=== PATIENT | male | born 1965 | race Caucasian/White ===

== ENCOUNTER 2020-01-07 17:18 | Emergency (ER) | payer OTHER, SELFPAY ==
[2020-01-07 17:27] VITALS: BP 182/103; PULSE 79; RESP 16; TEMP 36.8; O2SAT 97; BMI 43.0
--- NOTE | 2020-01-07 17:36 | DI.RAD.S_ITS ---
PROCEDURE: XR HUMERUS LT 2V INDICATIONS: possible torn bicep TECHNIQUE: 2 views of the humerus were acquired. COMPARISON: None. FINDINGS: Bones: No fractures or dislocations. No suspicious bony lesions. Soft tissues: No suspicious soft tissue calcifications. IMPRESSION: No fracture. No osseous lesion. If symptoms and/or clinical suspicion for pathology persists, further assessment with repeat radiographs (7-10 days) or advanced imaging (e.g. CT, MRI or bone scan) may be helpful. Dictated by: Fadumo Schaefer MD, PhD on 01/07/2020 at 17:57 Approved by: Fadumo Schaefer MD, PhD on 01/07/2020 at 17:57
--- NOTE | 2020-01-07 18:07 | ED.UPPEXIN ---
HPI - Extremity Injury (Upper) General Chief Complaint: Extremity Injury, Upper Stated Complaint: torn something in left bicep Time Seen by Provider: 01/07/20 17:52 Source: patient Mode of arrival: Ambulatory Limitations: no limitations History of Present Illness HPI narrative: 55M non smoker without significant medical history presents with severe left elbow / biceps pain with swelling after a work related injury earlier today. Patient was moving a heavy desk at work and it slipped and he reached out to grab it he felt pain, swelling and a pop on the flexor side of his left elbow in region of biceps insertion. He still has full strength and ROM, but has pain. He denies numbness, tingling or weakness. He denies prior injury. He denies shoulder pain. He is otherwise fine and well and free of complaint. He finds comfort self splinting his left arm flexed at 90 degrees at the elbow and laying acrossed his belly. complaint: injury to: left Onset (ago): hour(s) Other injuries: none Handedness: right Place: work Severity: moderate Relieving factors: rest Exacerbating factors: movement of extremity Context: other Associated symptoms: denies other symptoms Review of Systems Constitutional Constitutional: Denies chills, Denies fatigue, Denies fever(s), Denies frequent falls, Denies lethargy and Denies weakness Eyes Eyes: Denies change in vision, Denies eye discharge, Denies irritation and Denies loss of vision ENT Ears, Nose, Mouth, and Throat: Denies change in voice, Denies dizziness, Denies neck pain, Denies sore throat and Denies throat swelling Cardiovascular Cardiovascular: Denies chest pain, Denies irregular heart rhythm, Denies lightheadedness, Denies palpitations, Denies dyspnea, Denies dyspnea on exertion and Denies orthopnea Respiratory Respiratory: Denies cough, Denies dyspnea, Denies dyspnea on exertion and Denies wheezing Gastrointestinal Gastrointestinal: Denies abdominal pain, Denies change in bowel habits, Denies diarrhea, Denies nausea and Denies vomiting Musculoskeletal Musculoskeletal: Reports arthralgias, Reports joint swelling, Denies neck pain and Denies numbness Integumentary/Breasts Skin/Breast: Denies pruritus, Denies erythema, Denies rash and Denies wounds Neurologic Neurologic: Denies behavioral changes, Denies confusion, Denies dizziness, Denies frequent falls, Denies loss of vision, Denies numbness and Denies weakness Psychiatric Psychiatric: Denies anxiety, Denies behavioral changes, Denies confusion, Denies depression, Denies homicidal ideation and Denies suicidal ideation Endocrine Endocrine: Denies fatigue, Denies flushing and Denies palpitations Hematologic/Lymphatic Hematologic/Lymphatic: Denies easy bruising Allergic/Immunologic Allergic/Immunologic: Denies urticaria, Denies throat swelling and Denies wheezing Patient History alcohol intake frequency: holidays/special occasions only Substance Use Type: does not use Exam Narrative Exam Narrative: GENERAL: [55] year old patient appears stated age. Well-nourished, well-developed patient, in mild distress. HEAD: Atraumatic. Normocephalic. EYES: Pupils equal round and reactive. Extraocular motions intact. No scleral icterus. No injection or drainage. ENT: Nose without bleeding, purulent drainage. Throat without erythema, tonsillar hypertrophy or exudate. Airway patent. NECK: Trachea midline. Non tender CARDIOVASCULAR: Regular rate and rhythm without murmurs, gallops, or rubs. RESPIRATORY: Clear to auscultation. Breath sounds equal bilaterally. No wheezes, rales, or rhonchi. GASTROINTESTINAL: Abdomen soft, non-tender, nondistended. EXTREMITIES: Pain, swelling, ecchymosis on flexor surface of left elbow in region of distal insertion of biceps, brachialis, pronator teres. No classic balling of biceps. Full strength with flexion, extension, pronation, suppination. Full sensation. No bony pain. Closed, isolated, N/V intact. BACK: Nontender without deformity or crepitance. No flank tenderness. NEURO: AOx3. SKIN: No rash or erythema of visible areas Initial Vital Signs Initial Vital Signs: Vital Signs Temperature 98.3 F 01/07/20 17:27 Pulse Rate 79 01/07/20 17:27 Respiratory Rate 16 01/07/20 17:27 Blood Pressure 182/103 H 01/07/20 17:27 Pulse Oximetry 97 01/07/20 17:27 Procedures Orthopedic Splinting/Casting Injury #1: Side: left Upper Extremity Injury Location: elbow Upper Extremity Immobilizer: sling/shoulder immobilizer Post splinting neuro exam: intact Post splinting vascular exam: intact Placed by: Nursing Course Orders Ordered: ED Orders 01/07/20 17:36 XR humerus LT 2V Stat Consultations Consultation #1: discussed with environmental protection [facility] orthopedics (Lila). Recommends sling and follow up. Vital Signs Vital signs: Vital Signs - 8 hr 01/07/20 17:27 01/07/20 18:44 Temperature 98.3 F Pulse Rate 79 67 Respiratory Rate 16 14 Blood Pressure 182/103 H 155/80 H Pulse Oximetry 97 99 MDM - Extremity Injury (Upper) Imaging Data Extremity x-ray #1: Radiologist's Impression: [address] [address] XRay Report Signed Patient: Rishi Garza [facility]#: [id number] : 1965Acct:[id number] Age/Sex: 55 / MDate of Service: 01/07/20 Loc: ED Accession Number: [id number] Procedure: XR humerus LT 2V Ordering Provider: Juan Lorenzo D.O. PROCEDURE: XR HUMERUS LT 2V INDICATIONS: possible torn bicep TECHNIQUE: 2 views of the humerus were acquired. COMPARISON: None. FINDINGS: Bones: No fractures or dislocations. No suspicious bony lesions. Soft tissues: No suspicious soft tissue calcifications. IMPRESSION: No fracture. No osseous lesion. If symptoms and/or clinical suspicion for pathology persists, further assessment with repeat radiographs (7-10 days) or advanced imaging (e.g. CT, MRI or bone scan) may be helpful. Dictated by: Fadumo Schaefer MD, PhD on 01/07/2020 at 17:57 Approved by: Fadumo Schaefer MD, PhD on 01/07/2020 at 17:57 Discharge Plan Departure Patient Disposition: Home Clinical Impression: Biceps tendon rupture, traumatic Qualifiers: Encounter type: initial encounter Laterality: left Qualified Code(s): S46.212A - Strain of muscle, fascia and tendon of other parts of biceps, left arm, initial encounter Discharge Date/Time: 01/07/20 18:40 Instructions: Tendon Repair Activity Restrictions/Additional Instructions: *You have been diagnosed with [ Biceps tendon injury ] *What to do: *Take medications as directed *Follow up with [facility] in 2-3 days, call for an appointment. Let them know you were seen in the Emergency Department and that we ask that you be seen in follow up *Return to ER if you should have any new, worsening or concerning symptoms Referrals: Sultana Sharp MD [Physician] - Stand Alone Forms: Work Release Note
[2020-01-07 18:44] VITALS: BP 155/80; PULSE 67; RESP 14; O2SAT 99
== END 2020-01-07 18:40 | disposition home or self-care (01) ==
PROVIDERS: Emergency Provider Emergency Medicine
DX: S46.212A Strain of muscle, fascia and tendon of other parts of biceps, left arm, initial encounter (principal); X50.0XXA Overexertion from strenuous movement or load, initial encounter
CPT/HCPCS: 73060; 99283

== ENCOUNTER → 2020-01-20 11:33 | Outpatient (CLI) | payer OTHER, SELFPAY ==
[2020-01-21 06:46] LABS: COVID19 Sendout Not Detected (Not Detect)
== END ==
PROVIDERS: Visit Provider Physician Assistant
DX: Z01.812 Encounter for preprocedural laboratory examination (principal)
CPT/HCPCS: 87635

== ENCOUNTER 2020-01-22 12:05 | Day surgery (SDC) | payer OTHER, SELFPAY ==
[2020-01-12 13:38] VITALS: BMI 43.4
[2020-01-22] VITALS (7 sets, daily range): BP systolic 121–157; BP diastolic 74–102; PULSE 62–81; RESP 14–20; TEMP 35.3–36.6; O2SAT 94–97; BMI 42.9
[2020-01-22] MEDS: LACTATED RINGERS 1,000 ML 42 ML IV ×2 (12:46→15:43)
--- NOTE | 2020-01-22 13:51 | PM.PREOP ---
Pre-operative Note Interval Note History & Physical reviewed/Exam performed by Physician: Yes Changes to H&P: No
[2020-01-22] MEDS: CEFAZOLIN 2 GM/100 ML FROZ.PIGGY IV (14:00)
[2020-01-22] MEDS: BUPIVACAINE 0.5% (PF) VIAL 30 ML INJ (14:40)
--- NOTE | 2020-01-22 16:34 | P.OP_ITS ---
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 His exam was consistent with a left distal biceps rupture and he is brought to the operating room for repair is needed. Surgeon: Rola Olvera Manager Utilization Management: Randal Roper Anesthesia Type: General Operative Notes Findings: Complete left distal biceps rupture with moderate retraction Closure Type: primary Specimen(s): none sent Prosthetic devices, grafts, tissues, transplants, or devices: Arthrex distal biceps repair endo-button and screw. Estimated Blood Loss (mL): 50 Tourniquet time (min): 92 Procedure in detail: Patient is brought to the operating room. He had a timeout and his consent was reconfirmed. Was given 2 g of IV antibiotics. He underwent the induction of a general anesthesia. Left upper extremity was prepped and draped in a standard sterile fashion. We prepped the left upper extremity without a tourniquet and then applied a sterile tourniquet intraoperatively. An incision was made distal to the antecubital fossa and directed somewhat distally on the radial side. Transverse in incision. Dissection was carried out through skin and subcutaneous tissues. The lateral antebrachial nerve was identified and protected. Bipolar was used for hemostasis. The fascia was gently opened. The distal stump of the biceps was identified it was retracted about 3-4 cm proximally. It was carefully mobilized. He had a fairly large and thickened distal stump. Attention was then directed to the more inferiorly. The track along the biceps was palpated and dissection was carried out down to the radial tuberosity. Radial tuberosity was carefully identified I used a combination of multiple Homans as well as the Rich retractors to meticulously visualized is the radial tuberosity. There was good visualization of the radial tuberosity. I then used periosteal elevator to strip some soft tissue around the radial tuberosity. FiberWire whipstitch was then placed through the tendon and woven distally the. The distal thickened bicipital stump was carefully removed and the tendon was slightly tuber a lot to paralyzed. I also specifically look to make sure that there was a distal segment of the biceps tendon which would appropriately fit into an about an 8 mm hole. He had actually pretty large distal tendon stump and I thinned it some. Next a guidewire was driven through the radial tuberosity for bicortical fixation IA. The unicortical drilling of 8 mm was performed. The FiberWire was then woven through the Endobutton. The canal was meticulously irrigated with normal saline endo-button was carefully inserted and was deployed it there was an excellent bite and it did feel sterilely like the clearly that it had appropriately flipped. The tendon was then advanced down into the unicortical 8 mm hole. And that the sutures were carefully tightened. Sutures were then woven through the tendon once the tendon had been appropriately placed in the the hole. They were then carefully woven through the tendon. Are SP and then tied to the tendon. Finally a BioComposite screw was inserted and the sutures were further tied over the BioComposite screw. The wound was meticulously irrigated with normal saline. The wound was injected with Marcaine and the wound was closed with interrupted Vicryl and Monocryl. The patient is placed in a posterior splint. Complications: none Post-operative Condition: stable Disposition: same day surgery Plan for aftercare: Keep splint on. Return to clinic in a week and were going to get him a [id number] brace. Needs x-rays and suture removal.
[2020-01-22] MEDS: OXYCODONE/ACETAMINOPHEN 5/325 TABLET 1 TAB PO ×2 (16:54→17:29)
--- NOTE | 2020-01-22 17:02 | SUR.PHASEI ---
Patient A/O. Left hand warm. Cap refill < 2 seconds. Able to move fingers on left hand. Patient states left fingers tingly.
--- NOTE | 2020-01-22 17:05 | SUR.PHASEI ---
Dr Olvera at bedside evaluating hand.
== END 2020-01-22 15:55 | disposition home or self-care (01) ==
PROVIDERS: Referring Provider Orthopaedic Surgery; Visit Provider Orthopaedic Surgery
PROC: (CPT 24341; principal; 2020-01-22 13:45)
DX: S46.212A Strain of muscle, fascia and tendon of other parts of biceps, left arm, initial encounter (principal); X50.0XXA Overexertion from strenuous movement or load, initial encounter
CPT/HCPCS: 24342; J0690; J1100; J2405; J2704; J3010